=== PATIENT | male | born 1975 | race Caucasian/White ===

== ENCOUNTER 2021-04-20 10:12 | Outpatient (CLI) | payer OTHER ==
[2021-04-20 17:30] LABS: SARS-CoV-2 PCR by NAA Not Detected (NotDetected)
== END 2021-04-20 10:13 | disposition home or self-care (01) ==
LOC: LABBT 10:12
PROVIDERS: ATTEND Specialist
DX: Z01.818 Encounter for other preprocedural examination (principal); K80.20 Calculus of gallbladder without cholecystitis without obstruction; K64.9 Unspecified hemorrhoids; K62.5 Hemorrhage of anus and rectum; Z20.822 Contact with and (suspected) exposure to COVID-19
CPT/HCPCS: 93005; 93010; U0003; U0005

== ENCOUNTER 2021-04-22 13:14 | Day surgery (SDC) | payer OTHER ==
[2021-04-17 15:50] VITALS: BMI 29.3
[2021-04-22] MEDS ORDERED: Gabapentin 300 MG CAP ONE (13:40)
[2021-04-22] MEDS ORDERED: Acetaminophen 500 MG TAB ONE (13:40)
[2021-04-22] MEDS ORDERED: Ketorolac Tromethamine 30 MG/ML VIAL ONE (13:40)
[2021-04-22] MEDS ORDERED: Levofloxacin 500 mg/D5W 100 ml Premix Bag ONE ×2 (13:40→15:48)
[2021-04-22] MEDS ORDERED: Fentanyl 250 MCG/5 ML VIAL ONE ×2 (14:04→15:05)
[2021-04-22] MEDS ORDERED: Midazolam HCl 2 mg/2 ml Vial ONE (14:53)
[2021-04-22] MEDS ORDERED: Bupivacaine PF 0.5% 30 ML VIAL ONE (15:36)
[2021-04-22] MEDS ORDERED: Xylocaine 1% w/ Epi 1:100K 10 ML VIAL ONE (15:36)
[2021-04-22] MEDS ORDERED: PROPOFOL 200 MG/20 ML VIAL ONE (15:59)
[2021-04-22] MEDS ORDERED: Glycopyrrolate 0.2 MG/ML 5 ML SYRINGE ONE (15:59)
[2021-04-22] MEDS ORDERED: Lidocaine 1% PF 5 ML VIAL ONE (15:59)
[2021-04-22] MEDS ORDERED: Ondansetron PF 4 MG/2 ML Vial ONE (15:59)
[2021-04-22] MEDS ORDERED: Rocuronium Bromide 10 MG/ML (10ML VIAL) ONE (15:59)
[2021-04-22] MEDS ORDERED: Dexamethasone 20 MG/5 ML VIAL ONE (15:59)
[2021-04-22] MEDS ORDERED: Piperacillin/Tazobactam 3.375 GM VIAL ONE (16:16)
[2021-04-22] MEDS ORDERED: Lidocaine 2% Jelly 5 ML TUBE ONE (17:21)
[2021-04-22] MEDS ORDERED: Promethazine HCl 25 MG/ML VIAL ONE (18:28)
[2021-04-22] MEDS ORDERED: Morphine 4 MG/ML VIAL ONE (18:28)
[2021-04-22] MEDS ORDERED: HYDROcodone/Acetaminophen 5/325 mg Tablet ONE ×3 (20:27→22:56)
== END 2021-04-22 23:10 | disposition home or self-care (01) ==
LOC: SDC 13:14
PROVIDERS: ATTEND Specialist
PROC: 06BY3ZC Excision of Hemorrhoidal Plexus, Percutaneous Approach (ICD-10-PCS; principal; 2021-04-22)
PROC: 0FT44ZZ Resection of Gallbladder, Percutaneous Endoscopic Approach (ICD-10-PCS; principal; 2021-04-22)
PROC: 0DBN8ZZ Excision of Sigmoid Colon, Via Natural or Artificial Opening Endoscopic (ICD-10-PCS; principal; 2021-04-22)
DX: K80.10 Calculus of gallbladder with chronic cholecystitis without obstruction (principal); K64.4 Residual hemorrhoidal skin tags; K64.8 Other hemorrhoids; K63.5 Polyp of colon; Z87.891 Personal history of nicotine dependence
CPT/HCPCS: 88304; C1713; J1100; J1885; J1956; J2250; J2270; J2405; J2543; J2550; J2704; J3010; S0020